=== PATIENT | male | born 1975 | race Caucasian/White ===

== ENCOUNTER 2024-08-03 12:56 | Inpatient (IN) ==
[2024-08-03] MEDS ORDERED: IOPAMIDOL 100 ML BOTTLE IV ONE (12:57)
[2024-08-03] MEDS: KETOROLAC 30 MG/ML VIAL IV ONE (13:35)
[2024-08-03] MEDS: LORazepam 2 MG/ML VIAL IV ONE (13:36)
[2024-08-03] MEDS: LIDOCAINE 5 GM CREAM.TOP TOPICAL ONE (13:36)
[2024-08-03] MEDS: ACETAMINOPHEN 325 MG TABLET PO ONE (13:37)
[2024-08-03] MEDS: 0.9 % SODIUM CHLORIDE 1,000 ML IV ONE (13:41)
[2024-08-03 14:11] LABS: Basophils # (Auto) 0.03 K/mcL (0.00-0.30); Basophils % (Auto) 0.2 % (0.0-2.0); Eosinophils # (Auto) 0.01 K/mcL (0.00-0.70); Eosinophils % (Auto) 0.1 % (0.0-7.0); Hematocrit 49.2 % (40.1-51.0); Hemoglobin 16.7 g/dL (13.7-17.5); Lymphocytes % (Auto) 7.6 % (15.5-49.0); Mean Cell Volume 92.7 fL (80.0-100.0); Mean Corpuscular HGB Conc 33.9 g/dL (31.0-36.0); Mean Platelet Volume 10.7 fL (8.8-12.5); Monocytes # (Auto) 1.43 K/mcL (0.10-0.90); Monocytes % (Auto) 8.4 % (1.0-12.0); Neutrophils % (Auto) 83.5 % (38.0-78.0); Platelet Count 255 K/mcL (140-440); RBC 5.31 M/mcL (4.63-6.08); Red Cell Distribution Width 11.9 % (11.5-14.5)
[2024-08-03] MEDS: cefTRIAXone 2 GM in DEXTROSE 5% IN WATER 50 ML IV ONE (14:21)
[2024-08-03 14:26] LABS: ALT/SGPT 14 U/L (<40); AST/SGOT 15 U/L (<40); Albumin 4.2 gm/dL (3.2-5.2); Albumin/Globulin Ratio 1.1 (1.0-2.3); Alkaline Phosphatase 45 U/L (39-117); Bilirubin,Total 0.8 mg/dL (0.1-1.0); Blood Urea Nitrogen 17 mg/dL (6-20); Calcium 9.4 mg/dL (8.6-10.4); Carbon Dioxide 24 mmol/L (22-30); Chloride 97 mmol/L (96-108); Globulin 3.9 gm/dL (2.2-3.7); Glomerular Filtration Rate 77; Glucose 138 mg/dL (70-105); Sodium 135 mmol/L (133-145)
[2024-08-03] MEDS ORDERED: morphine 4 MG/ML VIAL IV PRN (14:50)
[2024-08-03] MEDS ORDERED: ONDANSETRON 4 MG/2 ML VIAL IV PRN (14:50)
[2024-08-03] MEDS: DIAZEPAM 10 MG/2 ML SYRINGE IV ONE (15:09)
[2024-08-03] MEDS: fentaNYL 100 MCG/2 ML VIAL IV ONE (15:09)
[2024-08-03] MEDS: metroNIDAZOLE 500 MG/100 ML BAG IV SCH (15:13)
[2024-08-03] MEDS: LACTATED RINGERS 1,000 ML IV SCH (15:18)
[2024-08-03 15:39] LABS: Prothrombin Time 13.9 sec (11.9-14.5)
[2024-08-03] MEDS: LORazepam 2 MG/ML VIAL IV PRN (17:14)
[2024-08-03] MEDS: HYDROmorphone 0.5 MG/0.5 ML SYRINGE IV PRN (17:14)
[2024-08-03] MEDS: PIPERACILLIN SODIUM/TAZOBACTAM 3.375 GM in DEXTROSE 5% IN WATER 50 ML IV ONE (18:22)
[2024-08-03] MEDS: 0.9 % SODIUM CHLORIDE 1,000 ML IV SCH (18:22)
[2024-08-03] MEDS: ACETAMINOPHEN 1,000 MG/100 ML BAG IV PRN (21:29)
[2024-08-03 21:32] LABS: Appearance,Urine CLEAR (Clear); Bilirubin,Urine Negative (Negative); Color,Urine YELLOW; Glucose,Urine (UA) Negative (Negative); Ketones,Urine Negative (Negative); Leukocyte Esterase,Urine Negative /uL (Negative); Mucus,Urine MOD /hpf; Nitrate,Urine Negative (Negative); Protein,Urine 30 mg/dL (Negative); Specific Gravity,Urine 1.016 (1.000-1.035); Urine Blood Negative (Negative); Urine RBC 1 /hpf (0-3); Urine Squamous Epithelial Cell 0 /hpf (0-4); Urine WBC 1 /hpf (0-4); Urobilinogen,Urine Negative
[2024-08-03] MEDS: ACETAMINOPHEN 1,000 MG/100 ML BAG IV ONE (21:39)
[2024-08-03] MEDS: PIPERACILLIN SODIUM/TAZOBACTAM 3.375 GM in DEXTROSE 5% IN WATER 100 ML IV SCH (22:12)
[2024-08-04 05:47] LABS: Basophils # (Auto) 0.03 K/mcL (0.00-0.30); Basophils % (Auto) 0.3 % (0.0-2.0); Eosinophils # (Auto) 0.12 K/mcL (0.00-0.70); Eosinophils % (Auto) 1.1 % (0.0-7.0); Hematocrit 39.2 % (40.1-51.0); Hemoglobin 13.3 g/dL (13.7-17.5); Lymphocytes # (Auto) 1.54 K/mcL (1.50-4.80); Lymphocytes % (Auto) 13.9 % (15.5-49.0); Mean Cell Volume 94.2 fL (80.0-100.0); Mean Corpuscular HGB Conc 33.9 g/dL (31.0-36.0); Mean Platelet Volume 10.5 fL (8.8-12.5); Monocytes # (Auto) 0.93 K/mcL (0.10-0.90); Monocytes % (Auto) 8.4 % (1.0-12.0); Neutrophils % (Auto) 76.1 % (38.0-78.0); Platelet Count 212 K/mcL (140-440); RBC 4.16 M/mcL (4.63-6.08); Red Cell Distribution Width 12.1 % (11.5-14.5); WBC 11.1 K/mcL (4.5-11.0)
[2024-08-04] MEDS ORDERED: fentaNYL 100 MCG/2 ML VIAL ONE (09:34)
[2024-08-04] MEDS ORDERED: KETAMINE 50 MG/ML Syringe IV ONE (09:34)
[2024-08-04] MEDS ORDERED: MIDAZOLAM 2 MG/2 ML VIAL ONE (09:35)
[2024-08-04] MEDS ORDERED: PROPOFOL 200 MG/20 ML VIAL IV ONE (09:35)
[2024-08-04] MEDS ORDERED: DEXAMETHASONE 10 MG/ML VIAL ONE (09:36)
[2024-08-04] MEDS ORDERED: GLYCOPYRROLATE 0.2 MG/ML VIAL IV ONE (09:36)
[2024-08-04] MEDS ORDERED: ONDANSETRON 4 MG/2 ML VIAL ONE (09:36)
[2024-08-04] MEDS ORDERED: LIDOCAINE 2% PF 5 ML VIAL ONE (09:36)
[2024-08-04] MEDS ORDERED: IPRATROPIUM/ALBUTEROL 3 ML AMPUL.NEB NEB PRN ×2 (11:00→11:58)
[2024-08-04] MEDS ORDERED: SCOPOLAMINE 1 PATCH PATCH TOPICAL PRN (11:30)
[2024-08-04] MEDS ORDERED: HYDROmorphone 0.5 MG/0.5 ML SYRINGE ONE (11:49)
[2024-08-04] MEDS ORDERED: KETOROLAC 30 MG/ML VIAL ONE (11:57)
[2024-08-04] MEDS ORDERED: fentaNYL 100 MCG/2 ML VIAL IV PRN (11:58)
[2024-08-04] MEDS ORDERED: FLUMAZENIL 0.1 MG/ML ML IV PRN (11:58)
[2024-08-04] MEDS ORDERED: METHOCARBAMOL 1,000 MG/10 ML VIAL IV PRN (11:58)
[2024-08-04] MEDS ORDERED: HYDROmorphone 0.5 MG/0.5 ML SYRINGE IV PRN (11:58)
[2024-08-04] MEDS ORDERED: NALOXONE HCL 0.4 MG/ML VIAL IV PRN (11:58)
[2024-08-04] MEDS ORDERED: BENZOCAINE/MENTHOL 1 LOZENGE PO PRN (11:58)
[2024-08-04] MEDS ORDERED: ONDANSETRON 4 MG/2 ML VIAL IV PRN (11:58)
[2024-08-04] MEDS ORDERED: LACTATED RINGERS 250 ML IV PRN (11:58)
[2024-08-04] MEDS: ACETAMINOPHEN 1,000 MG/100 ML BAG IV ONE (12:19)
[2024-08-04] MEDS: LACTATED RINGERS 1,000 ML IV SCH (13:10)
[2024-08-04] MEDS: CETIRIZINE 10 MG TABLET PO SCH (21:02)
[2024-08-04] MEDS: 0.9 % SODIUM CHLORIDE 1,000 ML IV SCH (21:59)
[2024-08-05 05:37] LABS: Basophils # (Auto) 0.03 K/mcL (0.00-0.30); Basophils % (Auto) 0.2 % (0.0-2.0); Eosinophils # (Auto) 0.01 K/mcL (0.00-0.70); Eosinophils % (Auto) 0.1 % (0.0-7.0); Hematocrit 40.6 % (40.1-51.0); Hemoglobin 13.5 g/dL (13.7-17.5); Lymphocytes % (Auto) 9.8 % (15.5-49.0); Mean Cell Volume 94.2 fL (80.0-100.0); Mean Corpuscular HGB Conc 33.3 g/dL (31.0-36.0); Mean Platelet Volume 10.3 fL (8.8-12.5); Monocytes # (Auto) 0.68 K/mcL (0.10-0.90); Monocytes % (Auto) 5.6 % (1.0-12.0); Neutrophils % (Auto) 84.1 % (38.0-78.0); Platelet Count 249 K/mcL (140-440); RBC 4.31 M/mcL (4.63-6.08); Red Cell Distribution Width 11.8 % (11.5-14.5); WBC 12.2 K/mcL (4.5-11.0)
[2024-08-05] MEDS: LISINOPRIL 10 MG TABLET PO SCH (09:02)
[2024-08-06 15:22] VITALS: TEMP 99; O2SAT 99
== END 2024-08-06 15:15 | disposition home or self-care (01) | DRG 346 ==
LOC: MEDSUR 12:56 → ED 12:56 → OBSVTOIN 15:52 → MEDSUR 16:05
PROVIDERS: ADMIT Family Medicine Adult Medicine; ATTEND Family Medicine Adult Medicine